=== PATIENT | male | born 1955 | race Caucasian/White ===

== ENCOUNTER 2019-08-07 05:35 | Day surgery (SDC) | payer OTHER ==
[~2019-08-07] VITALS: Ht 170.2 cm; Wt 68.0 kg
[2019-08-07] MEDS ORDERED: MIDAZOLAM 2 MG/2 ML VIAL ONE ×2 (11:07)
[2019-08-07] MEDS ORDERED: fentaNYL 0.05 MG/ML VIAL ONE (11:09)
[2019-08-07] MEDS ORDERED: LIDOCAINE 2% 100 MG/5 ML UJET TP ONE (11:09)
== END 2019-08-07 12:40 | disposition home or self-care (01) ==
LOC: MDS 05:35 → MMU 06:01 → MDS 12:40
PROVIDERS: ATTEND Internal Medicine Gastroenterology
DX: Z12.11 Encounter for screening for malignant neoplasm of colon (principal); D12.3 Benign neoplasm of transverse colon; K22.70 Barrett's esophagus without dysplasia; I10 Essential (primary) hypertension; E78.00 Pure hypercholesterolemia, unspecified; K44.9 Diaphragmatic hernia without obstruction or gangrene; Z79.82 Long term (current) use of aspirin; Z79.899 Other long term (current) drug therapy
CPT/HCPCS: 43235; 45380; 45385; 88305; J2250; J3010; J7030

== ENCOUNTER 2023-09-29 09:23 | Day surgery (SDC) | payer OTHER ==
[~2023-09-29] VITALS: Ht 175.3 cm; Wt 68.9 kg
[2023-09-29] MEDS ORDERED: LIDOCAINE 2% 100 MG/5 ML UJET TP ONE (10:34)
[2023-09-29] MEDS ORDERED: MIDAZOLAM 5 MG/5 ML VIAL ONE ×2 (10:34→11:35)
[2023-09-29] MEDS ORDERED: fentaNYL citrate 0.05 MG/ML VIAL ONE (10:34)
[2023-09-29] MEDS: fentaNYL citrate 0.05 MG/ML VIAL IVP ONE ×2 (11:15→11:54)
[2023-09-29] MEDS: MIDAZOLAM 2 MG/2 ML VIAL IVP ONE (11:16)
== END 2023-09-29 13:04 | disposition home or self-care (01) ==
LOC: MDS 09:23 → MMU 09:25 → MDS 13:04
PROVIDERS: ATTEND Internal Medicine Gastroenterology
DX: Z12.11 Encounter for screening for malignant neoplasm of colon (principal); K63.5 Polyp of colon; K22.70 Barrett's esophagus without dysplasia; K44.9 Diaphragmatic hernia without obstruction or gangrene; I10 Essential (primary) hypertension; F31.9 Bipolar disorder, unspecified; Z79.899 Other long term (current) drug therapy
CPT/HCPCS: 43239; 45385; 88305; 88312; 88313; 88342; J2250; J3010